=== PATIENT | male | born 1985 | race Caucasian/White ===

== ENCOUNTER 2025-01-19 22:45 | Emergency (ER) | payer SELFPAY ==
[2025-01-19] MEDS ORDERED: Naproxen 500 MG TAB ONE (23:22)
[2025-01-19 23:36] LABS: #Basophils 0.4 thou/uL (0.0-0.2); #Eosinophils 0.3 thou/uL (0.0-0.7); #Lymphocytes 2.4 thou/uL (1.20-3.40); #Monocytes 0.7 thou/uL (0.11-0.59); #Neutrophils 8.0 thou/uL (1.40-6.50); %Basophils 3.7 % (0.0-1.0); %Eosinophils 2.8 % (0.0-10.0); %Lymphocytes 20.3 % (21.0-51.0); %Monocytes 5.7 % (0.0-10.0); %Neutrophils 67.5 % (42.0-75.0); Hematocrit 48.3 % (42.0-52.0); Hemoglobin 16.1 g/dL (14.0-18.0); Mean Corpuscular Hemoglobin 27.9 pg (27.0-31.0); Mean Corpuscular Volume 83.4 fl (78.0-98.0); Platelet Count 219 10x3/uL (130-400); Red Blood Cell (RBC) Count 5.79 mill/uL (4.70-6.10); White Blood Cell (WBC) Count 11.9 10x3/uL (4.8-10.8)
[2025-01-19 23:48] LABS: ALT (SGPT) 53 U/L (Less than 45); AST (SGOT) 35 U/L (11-34); Albumin 4.4 g/dL (3.1-4.5); Alkaline Phosphatase 59 U/L (40-110); Anion Gap 16 mmol/L (10-20); BUN (Urea Nitrogen) 10 mg/dL (8.9-20.6); Bilirubin, Total 0.5 mg/dL (0.3-1.2); Calc. Creatinine Clearance 0 mL/min (70-130); Calcium 9.7 mg/dL (7.8-10.44); Carbon Dioxide 24 mmol/L (22-29); Chloride 102 mmol/L (98-107); Globulin 3.5 g/dL (2.4-3.5); Glucose 109 mg/dL (70-105); Potassium 3.9 mmol/L (3.5-5.1); Sodium 138 mmol/L (136-145)
[2025-01-20] MEDS ORDERED: Albuterol 2.5 MG (3 mL) NEB ONE (00:11)
== END 2025-01-20 00:37 | disposition home or self-care (01) ==
LOC: NAV ERS 22:45
DX: J20.9 Acute bronchitis, unspecified (principal); R03.0 Elevated blood-pressure reading, without diagnosis of hypertension
CPT/HCPCS: 71046; 80053; 85025; 87428; 94640; 96374; J2919; J7030; J7611; J7626